=== PATIENT | female | born 1995 | race Two or more races ===

== ENCOUNTER 2018-07-20 20:05 | Emergency (ER) | payer OTHER ==
[~2018-07-20] VITALS: Ht 160 cm; Wt 94.3 kg
[2018-07-20 20:05] VITALS: BP 125/71
[~2018-07-20 20:05] MED LIST: ANTIBIOTIC
[2018-07-20] MEDS ORDERED: IBUPROFEN600 MG ORAL (20:17)
[2018-07-20 20:52] VITALS: BP 121/72
--- NOTE | 2018-07-21 12:01 | Emergency Room Report ---
History of Present Illness General Chief Complaint: Head, Face, Neck Trauma Source: Patient Present Illness HPI Patient presents with complaints of trauma to the scalp area This happened essentially just prior to arrival Patient reports that she was putting some material up on top of a shelf when several pots and pans from that shelf fell down onto her head Patient denies any lapse of consciousness denies any neck pain she had some local discomfort to the top scalp area Patient also right after the episode reported some lightheadedness and dizziness Had a near syncopal type sensation However that resolved As a discomfort persisted she presents to the ER Denies any focal weakness Denies any visual changes Allergies: Coded Allergies: No Known Allergies (Unverified , 07/20/18) Patient History Past Medical History: see triage record Pertinent Family History: none Last Menstrual Period: One week ago Now: No Reviewed Nursing Documentation: PMH: Agreed; PSxH: Agreed Nursing Documentation-PMH Hx Cancer: Yes - kidney Review of Systems All Other Systems: negative except mentioned in HPI Physical Exam Vital Signs Date Time Temp Pulse Resp B/P (MAP) Pulse Ox O2 Delivery O2 Flow Rate FiO2 07/20/18 19:55 98.1 85 16 125/71 97 Room Air Sp02 EP Interpretation: reviewed, normal General Appearance: well appearing, no apparent distress Head: other - Small half by half centimeter hematoma palpated with a mild abrasion at the mid point mid top parietal region Eyes: bilateral eye PERRL, bilateral eye EOMI ENT: hearing grossly normal, normal pharynx, TMs + canals normal, uvula midline Neck: full range of motion, supple, no meningismus, no bony tend Respiratory: lungs clear, normal breath sounds, no rhonchi, no respiratory distress, no retraction, no accessory muscle use Cardiovascular #1: normal peripheral pulses, regular rate, rhythm, no edema, no gallop, no JVD, no murmur Gastrointestinal: normal bowel sounds, non tender, soft, no mass, no organomegaly, non-distended, no guarding, no hernia, no pulsatile mass, no rebound Musculoskeletal: normal inspection Neurologic: oriented x3, responsive, 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, motor strength/ tone normal, sensory intact Psychiatric: mood/affect normal Skin: warm/dry, palpation normal, other - As above, mild abrasion mid point top parietal region Lymphatic: normal inspection, no adenopathy Medical Decision Making Diagnostic Impression: Primary Impression: head injury ER Course Patient's clinical history exam and findings are consistent with mild concussive syndrome Patient is neurologically intact does not meet criteria for acute emergency imaging The wound was cleansed on top of the scalp Patient will require ice anti-inflammatory medicine and close outpatient follow- up Last Vital Signs Date Time Temp Pulse Resp B/P (MAP) Pulse Ox O2 Delivery O2 Flow Rate FiO2 07/20/18 20:52 98.1 82 16 121/72 97 Room Air Status: improved Disposition: HOME, SELF-CARE Condition: Stable Scripts Ibuprofen* (MOTRIN*) 600 Mg Tablet 600 MG ORAL Q8H PRN for For Pain, #20 TAB 0 Refills Prov: Loly Kumar DO 07/20/18 Referrals: NOT CHOSEN IPA/MD,REFERRING (PCP) Departure Forms: Return to Work Return to Work in (Days): 1 Return to Work Date: Jul 22, 2018 Patient Instructions: Head Injury, Adult, Concussion, Adult, [id number], Abrasion, [id number] Additional Instructions: Patient is provided with the discharge instructions notified to follow up with primary doctor in the next 2-3 days otherwise return to the er with any worsening symptoms. Please note that this report is being documented using [employer] technology. This can lead to erroneous entry secondary to incorrect interpretation by the dictating instrument. Loly Kumar DO Jul 21, 2018 12:01
== END 2018-07-20 20:52 | disposition home or self-care (01) ==
LOC: EDBD 20:05 → EMR 20:50
DX: S09.90XA Unspecified injury of head, initial encounter (principal); R42 Dizziness and giddiness; W20.8XXA Other cause of strike by thrown, projected or falling object, initial encounter; Y92.9 Unspecified place or not applicable; Z85.528 Personal history of other malignant neoplasm of kidney
CPT/HCPCS: 99283

== ENCOUNTER 2018-07-22 17:26 | Emergency (ER) | payer OTHER ==
[~2018-07-22] VITALS: Ht 160 cm; Wt 94.8 kg
[~2018-07-22 17:26] MED LIST changes: +IBUPROFEN600 MG ORAL
[2018-07-22] MEDS ORDERED: NKM (17:34)
[2018-07-22 17:45] VITALS: BP 120/72
--- NOTE | 2018-07-22 17:56 | Emergency Room Report ---
History of Present Illness General Chief Complaint: Head Injury Source: Patient Present Illness HPI 23-year-old female patient presents the ER complaining of headache and blurred vision for the past 2 days. Patient states that she was seen here previously in the ER following an injury at work. States that boxes and pots and pans fell onto the top of her head. Reports that they did no imaging at that time, states that they only "clean the wound" that was on top of her head. States she did not receive any michael or sutures. Denies loss of consciousness at that time or since. Denies vomiting. Denies photophobia or phonophobia. Denies vertigo. She is requesting work note. States has not followed up with Workmen's Compensation physician. States has not taken any medication for relief of symptoms, patient has paperwork from previous visit and prescription, did not fill prescription. Allergies: Coded Allergies: No Known Allergies (Unverified , 07/20/18) Patient History Past Medical History: see triage record Reviewed Nursing Documentation: PMH: Agreed; PSxH: Agreed Nursing Documentation-PMH Past Medical History: No History, Except For Hx Cancer: Yes - kidney Review of Systems All Other Systems: negative except mentioned in HPI Physical Exam Vital Signs Date Time Temp Pulse Resp B/P (MAP) Pulse Ox O2 Delivery O2 Flow Rate FiO2 07/22/18 17:27 98.4 77 18 118/68 99 Room Air Sp02 EP Interpretation: reviewed, normal General Appearance: well appearing, no apparent distress, alert, GCS 15, non- toxic Head: normocephalic, atraumatic, other Eyes: bilateral eye normal inspection, bilateral eye PERRL ENT: hearing grossly normal, normal pharynx, no angioedema, normal voice, TMs + canals normal, uvula midline, moist mucus membranes Neck: full range of motion Respiratory: lungs clear, normal breath sounds, no rhonchi, no respiratory distress, no accessory muscle use, no wheezing, speaking full sentences Cardiovascular #1: regular rate, rhythm, no edema Gastrointestinal: non tender, soft, no mass, non-distended, no guarding, no rebound Genitourinary: no CVA tenderness Musculoskeletal: back normal, digits/nails normal, gait/station normal, normal range of motion, non-tender Neurologic: alert, oriented x3, responsive, 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 Diagnostic Impression: Primary Impression: Post concussion syndrome ER Course Pt presents to ED c/o head pain status post injury 2 days ago, previously seen in the ER at that time following injury. DDX considered but are not limited to laceration, abrasion, contusion, cellulitis, ICH, skull fracture, concussion. Ordered CT of head to rule out acute pathology. VITAL SIGNS are WNL, patient is afebrile ED INTERVENTIONS: Provide patient with pain medicine and zofran while in the ER. Cranial nerves intact as tested, no focal neuro deficits. Denies neck pain, no TTP of neck. CT head negative for acute disease. Discuss results with the patient. Provided patient with copy of results. Instructed patient to followup with PCP and discuss results of report with patient, discuss need for further treatment and referral. Patient OK for discharge to home. Patient resting comfortably, in no acute distress, nontoxic appearing. Follow-up with Workmen's Compensation physician and discuss referral to neurology. ER precautions given. DISCHARGE: At this time pt is stable for d/c to home. Patient resting comfortably, in no acute distress, nontoxic appearing, talking without difficulty. Will provide with patient care instructions and any necessary prescriptions. Patient to take medication as instructed. Care plan and follow-up instructions provided. Patient questions asked and answered. Patient reports understanding and agreement to treatment plan. Patient instructed to follow-up with primary care provider in 1-3 days for wound check and 5-7 days for removal of michael. Patient instructed to followup with PCP to discuss further treatment plan and ability to go to work, ER precautions given. Patient instructed to return to ER immediately for any new or worsening of symptoms. - Please note that this Emergency Department Report was dictated using [employer] team member technology software, occasionally this can lead to erroneous entry secondary to interpretation by the dictation equipment. CT/MRI/US Diagnostic Results CT/MRI/US Diagnostic Results : Imaging Test Ordered: CT head Impression No intracranial hemorrhage, mass effect or CT evidence of acute infarct. Last Vital Signs Date Time Temp Pulse Resp B/P (MAP) Pulse Ox O2 Delivery O2 Flow Rate FiO2 07/22/18 17:45 98.6 74 16 120/72 98 Room Air Status: improved Disposition: HOME, SELF-CARE Condition: Stable Scripts Acetaminophen* (TYLENOL EXTRA STRENGTH*) 500 Mg Tablet 500 MG ORAL Q8H PRN for Prn Headache/Temp > 101, #30 TAB 0 Refills Prov: Harsha Aceves 07/22/18 Ondansetron* (ZOFRAN*) 4 Mg Tablet 4 MG ORAL Q6H PRN for Nausea & Vomiting, #8 TAB Prov: Harsha Aceves 07/22/18 Patient Instructions: Concussion, Adult, [id number]-[id number], Head Injury, Adult, Easy -to-Read Additional Instructions: Follow up with workman's compensation primary care physician in 1 - 2 days. If you experience loss of consciousness, vision loss or intractable vomiting, return to ED immediately. Avoid screen time. Drink plenty of fluids. Avoid alcohol/drug use, rest. Followup with primary care provider in 3 -5 days. Take medications as directed. Patient questions asked and answered. ER precautions given, patient instructed to return to ER immediately for any new or worsening of symptoms. Harsha Aceves Jul 22, 2018 17:56
[2018-07-22] MEDS ORDERED: Acetaminophen 500mg (ES) tab ORAL ONE (18:00)
--- NOTE | 2018-07-22 19:17 | Diagnostic Imaging Report ---
History: PAIN Exam: CT HEAD Without Contrast Technique more: CTDI is 70.38 mGy and DLP is 1309 mGy-cm. Technique more: One or more of the following dose reduction techniques were used: automated exposure control, adjustment of the mA and/or kV according to patient size, use of iterative reconstruction technique. Comparison: None available FINDINGS: No intracranial hemorrhage, mass effect or CT evidence of acute infarct. Ventricles are within limits and midline. The ramey-white differentiation appears preserved. The visualized paranasal sinuses, mastoids and orbits appear within limits. IMPRESSION: No intracranial hemorrhage, mass effect or CT evidence of acute infarct.
[2018-07-22] MEDS ORDERED: TYLENOL EXTRA500 MG ORAL (19:24)
[2018-07-22] MEDS ORDERED: ZOFRAN4 M3 ORAL (19:24)
[2018-07-22 19:30] VITALS: BP 118/76
== END 2018-07-22 19:30 | disposition home or self-care (01) ==
LOC: EMR 18:11
DX: F07.81 Postconcussional syndrome (principal); Z85.528 Personal history of other malignant neoplasm of kidney
CPT/HCPCS: 70450; 99284

== ENCOUNTER 2020-05-07 00:52 | Emergency (ER) | payer SELFPAY ==
[~2020-05-07] VITALS: Ht 160 cm; Wt 90.7 kg
[~2020-05-07 00:52] MED LIST changes: +NKM; +TYLENOL EXTRA500 MG ORAL; +ZOFRAN4 M3 ORAL
--- NOTE | 2020-05-07 01:10 | NUR ---
ED Nurse Note: Recieved pt from home, here with c/o right knee pain x 2 years, pt states care has been intermittent due to homelessness and could not kep appointments, injury was [employer] comp and pt lost job after incident and many personal problems folowed leaving pt homeless for a while, pt now has medical and attempting to compete f/u care but no appointments made due to covid, pt right knee is swollen and red, pt rates pain at 8/10 when walking or standing, also c/o cant sleep due to pain, pt denies cp, sob, or any other complaits or injuries.
--- NOTE | 2020-05-07 01:18 | Emergency Room Report ---
History of Present Illness General Chief Complaint: General Complaint Source: Patient, Medical Record Present Illness HPI This is a 25-year-old female with no past medical history. She presents with chief complaint of headache and knee pain. She said there is a results of a Workmen's Comp. injury that occurred in May 2018. She says she was working at [employer], when 4 pots fell on top of her head. She was seen here initially and went back to work. At work she complained of headache and was sent back here. CT scan was negative then. She saw [employer]. doctor already. She complained of knee pain also. She said she had x-ray and MRI which show some meniscal injury. She saw orthopedic doctor for a while and then recommend surgery. She never had a surgery because COVID pandemic hits. She says she never saw a neurologist for headache. This headache is practically every day. Throbbing in nature. No focal deficit. No fever chills. No other injury. Pain is 8 out of 10. 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 Patient History Past Medical History: see triage record, old chart reviewed Past Surgical History: none Pertinent Family History: none Social History: Denies: smoking Last Menstrual Period: 04/25/20 Now: No Immunizations: other Reviewed Nursing Documentation: PMH: Agreed; PSxH: Agreed Nursing Documentation-PMH Past Medical History: No History, Except For Hx Cancer: Yes - kidney Review of Systems Eye: Denies: eye pain, blurred vision ENT: Denies: ear pain, nose congestion, throat swelling Respiratory: Denies: cough, shortness of breath Cardiovascular: Denies: chest pain, palpitations Gastrointestinal: Denies: abdominal pain, diarrhea, nausea, vomiting Musculoskeletal: Reports: joint pain; Denies: back pain Skin: Denies: rash Neurological: Reports: headache; Denies: numbness Endocrine: Denies: increased thirst, increased urine Hematologic/Lymphatic: Denies: easy bruising All Other Systems: negative except mentioned in HPI Physical Exam Vital Signs Date Time Temp Pulse Resp B/P (MAP) Pulse Ox O2 Delivery O2 Flow Rate FiO2 05/07/20 00:57 98.2 88 16 149/90 (109) 98 Room Air Vitals unremarkable Sp02 EP Interpretation: reviewed, normal General Appearance: well appearing, no apparent distress, alert Head: normocephalic, atraumatic Eyes: bilateral eye PERRL, bilateral eye EOMI ENT: hearing grossly normal, normal pharynx Neck: full range of motion, supple, no meningismus Respiratory: chest non-tender, lungs clear, normal breath sounds Cardiovascular #1: regular rate, rhythm, no murmur Gastrointestinal: normal bowel sounds, non tender, no mass, no organomegaly, no bruit, non-distended Musculoskeletal: back normal, normal range of motion, gait/station normal Psychiatric: mood/affect normal Procedures Splinting Splinting : Consent: Verbal Location: Rt knee Pre-Made Type: JEREMIAH wrap Pre-Proc Neuro Vasc Exam: normal Post-Proc Neuro Vasc Exam: normal Patient Tolerated: Well Complications: None Medical Decision Making Diagnostic Impression: Primary Impression: Headache Qualified Codes: R51.9 - Headache, unspecified Additional Impression: Right knee sprain Qualified Codes: S83.91XA - Sprain of unspecified site of right knee, initial encounter ER Course Patient with headache and knee pain after injury that occurred almost 2 years ago. No new injury. Will discharge home. Last Vital Signs Date Time Temp Pulse Resp B/P (MAP) Pulse Ox O2 Delivery O2 Flow Rate FiO2 05/07/20 00:57 98.2 88 16 149/90 (109) 98 Room Air Status: unchanged Disposition: HOME, SELF-CARE Condition: Stable Scripts Ibuprofen* (MOTRIN*) 600 Mg Tablet 600 MG ORAL Q6H PRN for For Pain, #30 TAB 0 Refills Prov: Amrit Howell MD 05/07/20 Amitriptyline Hcl (AMITRIPTYLINE HCL) 50 Mg Tablet 50 MG ORAL BEDTIME, #30 TAB Prov: Amrit Howell MD 05/07/20 Additional Instructions: Follow-up with your doctor in 7 days. You may need a referral to see a neurologist for your headaches. Return if symptoms worsen. Amrit Howell MD May 07, 2020 01:18
[2020-05-07] MEDS ORDERED: IBUPROFEN600 M1 ORAL (01:20)
[2020-05-07] MEDS ORDERED: AMITRIPTYLINE H50 MG ORAL (01:20)
[2020-05-07 01:30] VITALS: BP 149/90
--- NOTE | 2020-05-07 01:30 | NUR ---
ER DISCHARGE NOTE: Patient is cleared to be discharged per ERMD, pt is aox4, on room air, with stable vital signs. pt was given dc and prescription instructions, pt was able to verbalize understanding, pt id band removed without complications. pt is able to ambulate with steady gait. pt took all belongings. pt knee wrapped with jenny wrap, pt shown how to apply and remove.
== END 2020-05-07 01:30 | disposition home or self-care (01) ==
LOC: EMR 01:26
DX: R51.9 Headache, unspecified (principal); S83.91XA Sprain of unspecified site of right knee, initial encounter; X58.XXXA Exposure to other specified factors, initial encounter; Y92.9 Unspecified place or not applicable; Z85.528 Personal history of other malignant neoplasm of kidney
CPT/HCPCS: 99282